=== PATIENT | male | born 1975 | race Caucasian/White ===

== ENCOUNTER 2023-11-27 01:41 | Inpatient (IN) | payer OTHER, SELFPAY ==
[2023-11-26 19:08] VITALS: BP 120/79
[2023-11-26 19:25] LABS: % Basophils 0.4 % (0-2); % Eosinophils 1.1 % (0-6); % Immature Granulocytes 0.4 % (0-0.5); % Lymphocytes 11.2 % (20.5-51.1); % Monocytes 6.3 % (1.7-9.3); % Neutrophils 80.6 % (42.2-75.2); Absolute Basophils 0.1 10^3/uL (0-0.2); Absolute Eosinophils 0.2 10^3/uL (0-0.7); Absolute Immature Granulocytes 0.1 10^3/uL (0-0.05); Absolute Lymphocytes 2.1 10^3/uL (1.2-3.4); Absolute Monocytes 1.2 10^3/uL (0.1-0.6); Absolute Neutrophils 15.1 10^3/uL (1.4-6.5); Hematocrit 37.5 % (39.0-52.0); Mean Corp Hgb Conc. 34.7 g/dL (33.0-37.0); Mean Corpuscular Volume 86.6 fL (80.0-94.0); Mean Platelet Volume 9.1 fL (7.4-10.4); Nucleated Red Blood Cells % 0 % (-); Platelet Count 530 10^3/uL (130-400); Red Blood Cell Count 4.33 10^6/uL (4.70-6.10); Red Cell Dist. Width 12.8 % (11.5-14.5); White Blood Cell Count 18.7 10^3/uL (4.8-10.8)
[2023-11-26 19:38] LABS: ALT (SGPT) 28 U/L (0-50); AST (SGOT) 29 U/L (17-59); Albumin 3.9 g/dl (3.5-5.0); Alkaline Phosphatase 111 U/L (38-126); Blood Urea Nitrogen 7 mg/dl (9-20); Calcium 9.6 mg/dl (8.4-10.2); Carbon Dioxide 26 mmol/L (22-30); Chloride 103 mmol/L (98-107); Glucose 109 mg/dl (70-99); Lipase 126 U/L (23-300); Potassium 3.8 mmol/L (3.5-5.1); Sodium 136 mmol/L (135-145); Total Bilirubin 0.4 mg/dl (0.2-1.3); Total Protein 7.1 g/dl (6.3-8.2); eGFR > 60.00
--- NOTE | 2023-11-26 20:37 | ED.GENMED ---
History of Present Illness
General
Chief Complaint: Abdominal Symptoms
Source: patient
Exam Limitations: none
Time Seen by Provider: 11/26/23 20:01
Travel History
Have you had any contact with someone who has COVID-19?: No
Do you have any symptoms of coronavirus? Fever > 100 degrees, chills, cough, shortness of breath, sore throat, loss of taste or smell, muscle aches, or headache?: No
History of Present Illness
History of Present Illness:
This is a 47 year old male that comes in with c/o fever and abd pain. State that the Monday before he started with a diverticulitis flare. State that he was put on two antibiotics and he has finished them. States that today he was out doing
yard work and came in and lay down. Patient's state that she went to kiss him on the head and felt that he was very hot. States that she took his Temp with an ear thermometer and he was 101.8. States that he has had chills, abd pain, headache
and slight Dizziness and slight urinary burning. . Denies any chest pain, SOB, nausea, vomiting, diarrhea.
Past History
Past History
ED Past Medical History: Other (Diverticulitis, )
ED Past Surgical History: Orthopedic (Right knee surgery)
Social History
Tobacco: Smoker
Alcohol: Daily (Beer 4-5)
Personal:
Living: with family
Review of Systems
Review of Systems
All Other Systems: ROS reviewed and negative except as documented in HPI and ROS
Constitutional: Reports fever and chills
EENT: Reports no symptoms
Respiratory: Reports no symptoms; Denies cough or trouble breathing
Cardiac: Reports no symptoms; Denies chest pain
ABD/GI: Reports abdominal pain; Denies nausea, vomiting or diarrhea
: Reports dysuria; Denies frequency or urgency
Musculoskeletal: Reports no symptoms
Skin: Reports no symptoms
Neurological: Reports dizzy (Slight) and headache
Psychiatric: Reports no symptoms
Phy Exam
General Physical Exam
General Presentation: no apparent distress
General age: appears stated age
General Skin: warm and dry
General Habitus: normal
General Mental: alert
General Hydration: appears well hydrated
ENT Exam
ENT Exam: TM's normal, pharynx normal and neck supple
Eye Exam
Eye Exam: EOMI
Cardiovascular Exam
Cardiovascular Exam: no edema, normal peripheral pulses and tachycardia
Pulmonary Exam
Pulmonary Exam: no respiratory distress, no rales, chest non tender, no crackles, no rhonchi, no cough and decreased breath sounds (with very faint exp wheezing noted upper lung dunn)
Gastrointestinal Exam
Gastrointestinal Exam: normal bowel sounds, soft, no organomegaly, no pulsatile mass, non distended and tender (LLQ tenderness with palpation)
Musculoskeletal Exam
Musculoskeletal Exam: full ROM and no edema
Skin Exam
Skin Exam: normal color, warm/dry, no rash and no petechia
Psychiatric Exam
Psychiatric Exam: normal mood/affect
Course
Orders/Labs/Results
Orders:
Orders
11/26/23 19:16
Complete Blood Count/With Diff Urgent
Comprehensive Metabolic Panel Urgent
Lipase Urgent
11/26/23 20:28
CT Abd/pel W Iv And Oral Contr Urgent
Comment:
Reason For Exam: Left lower abd pain
0.9% Sodium Chloride 1000 ml [Nss] 1,000 ml IV BOLUS
Acetaminophen 1000MG/100Ml [Ofirmev] 1,000 mg in 100 ml IV ONCE
Acetaminophen IV Indication:: ED Narcotic Naive Pt-ONCE
Iohexol [Omnipaque] See Protocol PO NOW STA
11/26/23 20:32
Ondansetron Injectable [Zofran] 4 mg .ROUTE .STK-MED ONE
11/26/23 20:37
Ondansetron Injectable [Zofran] 4 mg IV NOW STA
11/26/23 20:55
Lactic Acid Q4H
Comment: CANCEL 2nd LACTIC ACID IF 1st LACTIC ACID IS LESS THAN 2
Blood Culture Q30M
MARY Source: Blood/Venous
Specimen Description:
Blood Culture Q30M
MARY Source: Blood/Venous
Specimen Description:
11/26/23 23:13
Urinalysis Reflex To Culture Urgent
Date Specimen was Collected: 11/26/23
Time Specimen was Collected: 23:12
11/27/23 00:45
Lactic Acid Q4H
Comment: CANCEL 2nd LACTIC ACID IF 1st LACTIC ACID IS LESS THAN 2
Abnormal Lab Results
11/26/23
19:16
WBC 18.7 H 10^3/uL
(4.8-10.8)
RBC 4.33 L 10^6/uL
(4.70-6.10)
Hct 37.5 L %
(39.0-52.0)
Plt Count 530 H 10^3/uL
(130-400)
Abs Immat Gran (auto) 0.1 H 10^3/uL
(0-0.05)
Absolute Neuts (auto) 15.1 H 10^3/uL
(1.4-6.5)
Absolute Monos (auto) 1.2 H 10^3/uL
(0.1-0.6)
Neutrophils % 80.6 H %
(42.2-75.2)
Lymphocytes % 11.2 L %
(20.5-51.1)
BUN 7 L mg/dl
(9-20)
Creatinine 0.6 L mg/dL
(0.7-1.3)
Glucose 109 H mg/dl
(70-99)
11/26/23 19:16
11/26/23 19:16
Leukocytosis, Plt slightly elevated. Glucse nonfasting. Lipase normal at 126, Lactic acid normal at 0.7 Urine negative for infection.
Vital Signs
Initial and Last Documented VS:
Initial Vital Signs
Temp Pulse Resp BP Pulse Ox
100.4 F H 106 16 120/79 96
11/26/23 19:08 11/26/23 19:08 11/26/23 19:08 11/26/23 19:08 11/26/23 19:08
Last Documented Vital Signs
Temp Pulse Resp BP Pulse Ox
98.2 F 65 13 106/68 94
11/26/23 23:14 11/26/23 23:14 11/26/23 23:14 11/26/23 23:14 11/26/23 23:14
MDM/Problems Addressed
Differential Diagnosis Includes:
Diverticulitis with abscess, Perforated diverticulum
MDM/Problems Addressed:
This is a 47 year old male that comes in with c/o fever and abd pain. States that before he started with a diverticulitis flare. Patient was given Levaquin and Flagyl which he had finished. States that his pain is still there and today he
started with fever and chills.
Will get lab and CT scan. will give IV fluids and Tylenol .
Back into see patient and . Explained that he does have diverticulitis with an abscess. Will give IV antibiotics and admit. Hospitalist notified.
Chronic conditions affecting care: Other (Diverticulitis)
Acute Exacerbation and/or Progression of Chronic Illness: Other (Diverticulitis)
*Radiology
Radiology exam reviewed: radiology read reviewed (CT night hawk- Acute diverticulitis/colitis involving the rectosigmoid, with marked mural thickening and extenive inflammatory stranding. There is an associated 4.6 X 3.3 X 3.2cm abscess seen
involving the rectal wall, with the abscess anteriorly projecting towards the seminal vesicles. t) and all reviewed NAD by ED Provider (CT cont- IR consultation is recommended. Follow up colonoscopy is recommended after the patient's acute
inflmmation resolved in order to exclude underlying malignancy. Mural thickening of the bladder, suspicious for cystitis. Correlation with UA is recommended. NO free air. Vascular calcifcations. )
*Pulse Oximetry
Patient hypoxic: no
*EKG
Interpreted by ED Provider?: NA
Rate: EKG- N/A
*Benefits Director Interpretation
Rate: Benefits Director- N/A
*Critical Care Note
Total Time (30-74mins, 75-104mins- exclusive of procedures): Not Applicable
ED Attending Note
-
Portions of this chart may have been created with voice recognition software.� Occasional wrong word or��sound alike� substitutions may have occurred due to the inherent limitations of voice recognition software.
Discharge Plan
Departure
Patient Disposition: Admit
Date of Disposition: 11/27/23
Time of Disposition: 00:01
Admit to: Med/Surg
Presentation/result/management discussed w/ accepting MD/DO: Hospitalist
Patient with high blood pressure during this ER visit?: No
Condition: Good
Covid-19: Not Applicable
Discharge Problem:
Diverticulitis of intestine with abscess
Prescriptions:
No Action
No Meds
metronidazole 500 MG tablet
500 mg PO TID Qty: 30 0RF
ciprofloxacin HCl 500 MG tablet
500 mg PO BID Qty: 20 0RF
Referrals:
Avelino Zamorano MD [Family Provider] -
Interventions
Interventions:
*Risk Screen - Suicide Last Done: 11/26/23 19:08
*General Assessment Last Done: 11/26/23 19:08
*Neglect/Abuse Screening Last Done: 11/26/23 21:06
*ED COVID-19 Vaccine History Last Done: 11/26/23 19:08
NQ-Xcnxpd-Adoajrrcug Assessment Last Done: 11/26/23 21:06
Discharge Date and Time
Print Language: FINNISH
[2023-11-26] MEDS: OFIRMEV 100 IV (20:50)
[2023-11-26] MEDS: NSS 1000 IV (20:50)
[2023-11-26] MEDS: OMNIPAQUE 50 ML PO (20:51)
[2023-11-26] MEDS: ZOFRAN 4 MG IV (20:51)
[2023-11-26 20:59] VITALS: BP 102/71; BMI 20.1
[2023-11-26 21:19] LABS: Lactic Acid 0.7 mmol/L (0.7-2.0)
[2023-11-26 23:14] VITALS: BP 106/68
[2023-11-26 23:22] LABS: Urine Albumin Negative (Neg - Trace); Urine Bilirubin Negative (Negative); Urine Character Clear (Clear); Urine Color Yellow; Urine Glucose Negative (Negative); Urine Ketone Negative (Negative); Urine Leukocyte Negative (Negative); Urine Nitrite Negative (Negative); Urine Occult Blood Negative (Negative); Urine Urobilinogen Negative (Neg - 1+)
[2023-11-27] VITALS (11 sets, daily range): BP systolic 67–119; BP diastolic 54–71; BMI 19.7
[2023-11-27] MEDS: ZOSYN 50 IV ×5 (00:30→23:53)
--- NOTE | 2023-11-27 01:29 | HPS.HSE ---
Family Physician
-
Family Physician: Avelino Zamorano
Chief Complaint
-
fever and abdominal pain
History of Present Illness
47M current smoker HX diverticulosis/ diverticulitis , daily ETOH use seen at ER for evaluation of fever and abd pain.
Fever and abdominal pain;
noted he is feverish , Temp was 101.8 with chills
Associated with abdominal pain
Recent acute diverticulitis Dxed on 11/09 s/p course of ciprofloxacin and metronidazole - last dose was 11/21/23
After the ABx course, pain is slightly improved but not completely pain free
last BM was yesterday - liquid to like small baby feces
Drink Beer 4-5 cans a day
No proir HC ETOH WDS
ROS
Denies any chest pain, SOB, nausea, vomiting, diarrhea.
Medical History
Past Medical History
Past Medical History: Reports Other ((Diverticulitis, ))
Past Surgical History: Reports None
Social History
Tobacco: Smoker
Alcohol: Daily
Drug: None
Personal:
Living: With Family
Family History
Family History: Not pertinent
Allergies / Home Medications
Allergies reflects when Allergies were last updated in [employer].
Home Medications with original date entered in [employer]
Allergy/Medication List:
Allergies
Allergy/AdvReac Type Severity Reaction Status Date / Time
No Known Allergies Allergy Unverified 06/18/12 09:37
Home Medications
No Meds 06/18/12
ciprofloxacin HCl 500 mg tablet 500 mg PO BID #20 tabs 06/18/12
metronidazole 500 mg tablet 500 mg PO TID #30 tabs 06/18/12
Review of Systems
-
Constitutional: Reports Fever and Chills
EENT: Reports No Symptoms
Respiratory: Reports No Symptoms
Cardiac: Reports No Symptoms
Abdomen/GI: Reports See HPI, Abdominal Pain and Nausea
: Reports No Symptoms
Musculoskeletal: Reports No Symptoms
Skin: Reports No Symptoms
Neurological: Reports No Symptoms
Endocrine: Reports No Symptoms
Hematologic/Lymphatic: Reports No Symptoms
Psych: Reports No Symptoms
Physical Exam
Vital Signs
Vital Signs
Temp Pulse Resp BP Pulse Ox
98.2 F 58 12 97/69 94
11/26/23 23:14 11/27/23 00:32 11/27/23 00:32 11/27/23 00:32 11/27/23 00:32
Physical Exam
General: No Apparent Distress, Comfortable, Conversant and Other (not toxic )
HEENT: NormoCephalic, Anicteric, Moist mucous membranes and Atraumatic
Respiratory: Clear; No Wheezes, Rales or Rhonchi
Cardiac: S1/S2, Regular Rhythm and Irregular Rhythm
Breast: Deferred by me
GI: Soft, Non Distended and Tender (at LLQ )
Musculoskeletal: No Edema
Neuro: AO x 3 and Nonfocal/grossly intact
Psych: Calm
Laboratory Results
-
11/26/23 19:16
11/26/23 19:16
Laboratory Results
Lactic Acid 0.7 mmol/L (0.7-2.0) 11/26/23 20:55
Total Bilirubin 0.4 mg/dl (0.2-1.3) 11/26/23 19:16
AST 29 U/L (17-59) 11/26/23 19:16
ALT 28 U/L (0-50) 11/26/23 19:16
Alkaline Phosphatase 111 U/L (38-126) 11/26/23 19:16
Lipase 126 U/L (23-300) 11/26/23 19:16
Data Reviewed
-
CT Scan: Report Reviewed by me
Lab Data: Labs Reviewed by me
Old Records: Reviewed
Impression/Plan
-
Reviewed VS: T 100.4 BP 95/90 HR 60
Data
WCC 18.7
Plt 530
nl CMP
LA 0.[address] AP w IV/PO contrast per night hawk
- Acute diverticulitis/colitis involving the rectosigmoid, with marked mural thickening and extenive inflammatory stranding.
- There is an associated 4.6 X 3.3 X 3.2cm abscess seen involving the rectal wall, with the abscess anteriorly projecting towards the seminal vesicles.
- IR consultation is recommended.
- Follow up colonoscopy is recommended after the patient's acute inflmmation resolved in order to exclude underlying malignancy. Mural thickening of the bladder, suspicious for cystitis. Correlation with UA is recommended. NO free air. Vascular
calcifcations.
No prior hospitalist admission:
ASSESSMENT & PLAN
Acute perforated diverticulitis with 4.6 X 3.3 X 3.2cm abscess seen involving the rectal wall and abscess anteriorly projecting towards the seminal vesicles.
Associated reactive thrombocytosis and leucocytosis
Recent acute diverticulitis Dxed on 11/09 s/p course of ciprofloxacin and metronidazole - last dose was 11/21/23
After the ABx course, pain is slightly improved but NOT completely pain free
last BM was yesterday - liquid to like small baby feces
- NPO and IVF
- Empiric Zosyn
- Narcotic Analgesia PRN
- Antiemetics PRN
- Trend CBC
- CRS and IR consult
Daily ETOH use disorder
- MSAS protocol
DVT Px: SCD
Full code
IP MS
[2023-11-27] MEDS: DILAUDID 0.5 MG IV ×3 (02:26→18:16)
[2023-11-27] MEDS: NSS 1000 IV ×3 (03:20→23:53)
--- NOTE | 2023-11-27 04:21 | PTCARENOTE ---
Patient received from ED via stretcher and ambulated to bed. He was oriented to room and surroundings. HRR, Breath sounds are decreased with scattered exp wheezes. Sat 96% on room air. Abdomen tender and round. Voided x 1 in bathroom.
IVF and IV abx as ordered. MSAS 0.
[2023-11-27 06:41] LABS: Hematocrit 36.3 % (39.0-52.0); Hemoglobin 12.2 g/dL (13.0-18.0); Mean Corp Hgb Conc. 33.6 g/dL (33.0-37.0); Mean Corpuscular Hgb 29.9 pg (27.0-31.0); Mean Platelet Volume 9.8 fL (7.4-10.4); Platelet Count 525 10^3/uL (130-400); Red Blood Cell Count 4.08 10^6/uL (4.70-6.10); Red Cell Dist. Width 12.9 % (11.5-14.5); White Blood Cell Count 18.5 10^3/uL (4.8-10.8)
[2023-11-27 07:01] LABS: Blood Urea Nitrogen 8 mg/dl (9-20); Calcium 8.8 mg/dl (8.4-10.2); Carbon Dioxide 26 mmol/L (22-30); Chloride 104 mmol/L (98-107); Estimated Creatinine Clearance > 125 ml/min; Glucose 79 mg/dl (70-99); Potassium 4.3 mmol/L (3.5-5.1); Sodium 135 mmol/L (135-145); eGFR > 60.00
--- NOTE | 2023-11-27 09:45 | WOUNDNOTE ---
WOC RN note: confirmed with FLORA Mac that stoma marking can be done in the am.
[2023-11-27 10:32] LABS: INR 1.21; PT 15.1 Sec (11.4-14.6)
--- NOTE | 2023-11-27 10:56 | CON.CRS ---
Consultation
-
Date/Time Consultation Requested: 11/27/2023, 02:41
Date/Time Consultation Performed: 11/27/2023, 08:30
Requesting Provider: Martha Morton CRNP
Performing Provider: Jarrett Hope MD
Reason for Consultation: diverticulitis
Medical History
-
Chief Complaint: abdominal pain
History of Present Illness:
47-year-old male with a past medical history of diverticulitis in 2011 presents to [facility] emergency department on 11/26/2023 complaining of abdominal pain and fevers for a little over 2 weeks. The patient states his temp was 101.8 with
chills. He saw his primary care physician on 11/10/2023 and was prescribed a course of ciprofloxacin and metronidazole and he completed his course on 11/21/2023. He stated that the antibiotics helped but he still was not completely pain-free. His
last bowel movement was yesterday and was liquid in nature. Usually he has regular bowel movements daily. He states he has been having trouble peeing over the past few days. He denies any air in his urine. He feels bloated and distended. He
denies nausea or vomiting. He is hungry. He has had been having chills over the past few nights. He is still having flatus. He denies prior colorectal surgery. His last colonoscopy was in May [address] Jiang and he had 5 polyps removed
and hemorrhoids were noted.
In the ER his white count was 18.7. CT of the abdomen and pelvis shows pronounced bowel wall thickening and inflammatory changes adjacent to the rectum and sigmoid colon, likely reflective of severe diverticulitis. Suspected abscess located
between the rectum and seminal vesicles, measuring 4.6 x 3.3 x 3.2 cm. We have been consulted for further surgical evaluation.
Past Medical History
Past Medical History: Other (diverticulitis in 2011)
Past Surgical History: None
Social History
Tobacco: Smoker
Alcohol: None
Drug: None
Family History
Family History: Reviewed & Not Pertinent
Allergies / Home Medications
Allergy/AdvReac Type Severity Reaction Status Date / Time
No Known Allergies Allergy Unverified 06/18/12 09:37
�Medication �Instructions �Recorded �Confirmed �Type
No Meds 06/18/12 06/18/12 History
ciprofloxacin HCl 500 mg tablet 500 mg PO BID #20 tabs 06/18/12 Rx
metronidazole 500 mg tablet 500 mg PO TID #30 tabs 06/18/12 Rx
Review of Systems
-
History Source: Patient
Constitutional: Fever and Chills
Abdomen/GI: Abdominal Pain
: Other (trouble urinating)
A 10 point review of systems was completed, and was negative except as per HPI.
Physical Exam
Vital Signs
Temp 99.8 F 11/27/23 07:20
Pulse 78 11/27/23 07:20
Resp Rate 17 11/27/23 07:20
Blood pressure 95/56 11/27/23 07:20
SaO2 91 11/27/23 07:20
11/26/23 11/27/23 11/28/23
06:59 06:59 06:59
Actual Weight 77.201 kg
Body Mass Index (BMI) 19.7
Lab Results / Allergies
11/27/23 05:33
11/27/23 05:33
WBC 18.5 10^3/uL (4.8-10.8) H 11/27/23 05:33
Hgb 12.2 g/dL (13.0-18.0) L 11/27/23 05:33
Hct 36.3 % (39.0-52.0) L 11/27/23 05:33
Plt Count 525 10^3/uL (130-400) H 11/27/23 05:33
Abs Immat Gran (auto) 0.1 10^3/uL (0-0.05) H 11/26/23 19:16
Neutrophils % 80.6 % (42.2-75.2) H 11/26/23 19:16
Allergy/AdvReac Type Severity Reaction Status Date / Time
No Known Allergies Allergy Unverified 06/18/12 09:37
Physical Exam
General: Well Developed, Well Nourished and No Apparent Distress
GI: Soft, Tender (lower quadrants , guarding) and Distended (mild to moderate)
Skin: Warm and Dry
Neuro: AO x 3
Psych: Calm
Data Reviewed
-
CT Scan: Image Personally Visualized and interpreted, Report Reviewed by me and Discussed with Patient
Labs: Labs Reviewed by me, Discussed with Physician and Discussed with Patient
Old Records: Reviewed
Assessment / Plan
-
Assessment: 47-year-old male with past medical history of diverticulitis in 2011, presents to the emergency department for 2 weeks of abdominal pain, fevers and chills, and difficulty urinating found to have severe rectum and sigmoid diverticulitis
with a suspected abscess located between the rectum and seminal vesicles
Plan:
1. Remain n.p.o. for now.
2. IV fluids while NPO.
3. I have consulted interventional radiology for drainage of the abscess.
4. Continue IV antibiotics.
5. I have asked the wound RN to tomás him for an ostomy in case he were to worsen.
6. No surgery at this time however if he were to worsen, he will require a colectomy with colostomy creation. Discussed with the patient.
--- NOTE | 2023-11-27 12:53 | W.PN.HOSP.TC ---
Today's Communication/Plan
-
.
Assessment / Plan
Assessment / Plan
Physical Exam
General: No Apparent Distress, Comfortable, Conversant and Other (not toxic )
HEENT: Normocephalic, Anicteric, Moist mucous membranes and Atraumatic
Respiratory: some expiratory Rhonchi
Cardiac: S1/S2, Regular Rhythm and Irregular Rhythm
GI: Soft, mildly Distended and Tender (at LLQ )
Musculoskeletal: No Edema
Neuro: AO x 3 and Nonfocal/grossly intact
Psych: Calm
#Sepsis POA due to Acute diverticulitis/colitis involving the rectosigmoid, with marked mural thickening and extensive inflammatory stranding.
- There is an associated 4.6 X 3.3 X 3.2cm abscess seen involving the rectal wall, with the abscess anteriorly projecting towards the seminal vesicles.
- IR consultation is recommended.
- Follow up colonoscopy is recommended after the patient's acute inflmmation resolved in order to exclude underlying malignancy. Mural thickening of the bladder, suspicious for cystitis. Correlation with UA is recommended. NO free air. Vascular
calcifications.
Associated reactive thrombocytosis and leucocytosis
Recent acute diverticulitis Dxed on 11/09 s/p course of ciprofloxacin and metronidazole - last dose was 11/21/23
c/w IV Abx, NPO , pain control
- IVF
- Narcotic Analgesia PRN
- Antiemetics PRN
- Trend CBC
Appreciate IR and surgery input
#Tobacco use, smoke 1 PPD
Nicotine patch if he agrees
# Acute urinary retention
will do bladder scan and Camarena if not voiding
#Daily ETOH use disorder
- MSAS protocol
�Total time spent to see patient, examine the patient on the floor, review data and lab results, discuss treatment plan with patient, nursing staff around 55 minutes
Anticipated Discharge: > 48 hours
Subjective/Interval History
-
Date of Service: November 27, 2023
Seen earlier
Less abd pain
Having difficulty passing urine earlier
Objective Data
-
Labs:
Laboratory Results
11/27/23 11/27/23
05:33 10:09
WBC 18.5 H
Hgb 12.2 L
Hct 36.3 L
Plt Count 525 H
PT 15.1 H
INR 1.21
Sodium 135
Potassium 4.3
Chloride 104
Carbon Dioxide 26
BUN 8 L
Creatinine 0.6 L
Glucose 79
Calcium 8.8
Vital Signs:
Vital Signs
Temp Pulse Resp BP Pulse Ox
98.6 F 76 18 98/59 97
11/27/23 11:41 11/27/23 11:41 11/27/23 11:41 11/27/23 11:41 11/27/23 11:41
I&O
11/26/23 11/27/23 11/28/23
06:59 06:59 06:59
Intake Total 350 / 350
Balance 350 / 350
[2023-11-27] MEDS: NICODERM TRANSDERMAL 21 MG TRANSDERM (13:21)
--- NOTE | 2023-11-27 14:46 | W.PN.UPDATE ---
Update Note
Progress Note Update
CT guided abscess drain placed, yielding 10 cc of pus. Sent for C+S.
--- NOTE | 2023-11-27 16:56 | CM ---
Alert awake oriented patient who lives with his Caitie who lives in a 3 story home with 1 step to enter and 14 steps to bed and bathroom. He is independent in driving and in all activities of daily living.No adaptive devices.He was offered VN
he declined need.IR drain placed today.
No VN hx / No SNF history
Pharmacy [facility]
PCP DR Avelino Zamorano
PLAN Home Declined VN
--- NOTE | 2023-11-27 19:43 | PTCARENOTE ---
Received patient from IR via stretcher around 1545 in stable condition. Patient has a right upper buttock ISAIAS drain in place draining purulent sanguinous drainage. Patient also has not voided since this morning at 0915. Bladder scan at 1730 was 513.
Patient was very resistant to a catheter and asked for more time. Patient still had not voided by 1830. Straight cathed for 550 ml dark yellow urine at 1900.
[2023-11-27] MEDS: TYLENOL 650 MG PO (21:19)
[2023-11-27] MEDS: NSS IV (21:21)
[2023-11-28 03:55] VITALS: BP 104/65
[2023-11-28] MEDS: ZOSYN 50 IV ×3 (05:12→17:06)
[2023-11-28 07:00] VITALS: BP 106/60
--- NOTE | 2023-11-28 08:00 | W.PN.HOSP.TC ---
Today's Communication/Plan
-
.
Assessment / Plan
Assessment / Plan
Physical Exam
General: No Apparent Distress, Comfortable, Conversant and Other (not toxic )
HEENT: Normocephalic, Anicteric, Moist mucous membranes and Atraumatic
Respiratory: no expiratory Rhonchi
Cardiac: S1/S2, Regular Rhythm and Irregular Rhythm
GI: Soft, mildly Distended and less Tender (at LLQ ), drain Right lower back
Musculoskeletal: No Edema
Neuro: AO x 3 and Nonfocal/grossly intact
Psych: Calm
#Sepsis POA due to Acute diverticulitis/colitis involving the rectosigmoid, with marked mural thickening and extensive inflammatory stranding.
- There is an associated 4.6 X 3.3 X 3.2cm abscess seen involving the rectal wall, with the abscess anteriorly projecting towards the seminal vesicles.
- s/p drain by IR on 11/26
He is doing better, no significant pain or tenderness
Recent acute diverticulitis Dxed on 11/09 s/p course of ciprofloxacin and metronidazole - last dose was 11/21/23
c/w IV Abx, NPO , pain control
- IVF, can try liquid diet
- Narcotic Analgesia PRN
- Antiemetics PRN
- Blood work in AM
Appreciate IR and surgery input
#Tobacco use, smoke 1 PPD
Nicotine patch
No wheezes heard today
No hypoxia
# Acute urinary retention
will do bladder scan and Camarena if not voiding
#Daily ETOH use disorder
No signs of DT, he is lucid, calm and pleasant
- MSAS protocol
�Total time spent to see patient, examine the patient on the floor, review data and lab results, discuss treatment plan with patient, nursing staff around 55 minutes
Anticipated Discharge: > 48 hours
Subjective/Interval History
-
Date of Service: November 28, 2023
Doing better
passing gas
No chest pain
Objective Data
-
Vital Signs:
Vital Signs
Temp Pulse Resp BP Pulse Ox
98.0 F 71 18 106/60 95
11/28/23 07:00 11/28/23 07:00 11/28/23 07:00 11/28/23 07:00 11/28/23 07:00
I&O
11/27/23 11/28/23 11/29/23
06:59 06:59 06:59
Intake Total 350 / 350 2960 / 2960
Output Total 590 / 590
Balance 350 / 350 2370 / 2370
[2023-11-28] MEDS: NICODERM TRANSDERMAL 21 MG TRANSDERM (08:44)
[2023-11-28] MEDS: NSS 1000 IV ×2 (09:12→17:06)
[2023-11-28 09:18] LABS: % Basophils 0.3 % (0-2); % Eosinophils 0.5 % (0-6); % Immature Granulocytes 0.6 % (0-0.5); % Lymphocytes 6.9 % (20.5-51.1); % Neutrophils 84.7 % (42.2-75.2); Absolute Basophils 0.1 10^3/uL (0-0.2); Absolute Eosinophils 0.1 10^3/uL (0-0.7); Absolute Immature Granulocytes 0.1 10^3/uL (0-0.05); Absolute Lymphocytes 1.3 10^3/uL (1.2-3.4); Absolute Monocytes 1.3 10^3/uL (0.1-0.6); Hematocrit 35.7 % (39.0-52.0); Hemoglobin 11.9 g/dL (13.0-18.0); Mean Corp Hgb Conc. 33.3 g/dL (33.0-37.0); Mean Corpuscular Volume 89.9 fL (80.0-94.0); Mean Platelet Volume 9.9 fL (7.4-10.4); Nucleated Red Blood Cells % 0 % (-); Platelet Count 477 10^3/uL (130-400); Red Blood Cell Count 3.97 10^6/uL (4.70-6.10); Red Cell Dist. Width 12.8 % (11.5-14.5); White Blood Cell Count 18.9 10^3/uL (4.8-10.8)
--- NOTE | 2023-11-28 09:49 | W.PN.CRS1 ---
Today's Communication / Plan
-
clears to fulls
continue abx
drain in place
monitor wbc
Assessment/Plan
-
Assessment: 47-year-old male with past medical history of diverticulitis in 2011, presents to the emergency department for 2 weeks of abdominal pain, fevers and chills, and difficulty urinating found to have severe rectum and sigmoid diverticulitis
with a suspected abscess located between the rectum and seminal vesicles
Plan:
1. Trend vitals (normal) and WBC, 18.9 from 18.5.
1. Advance diet to clears, fulls for diner if tolerating.
2. Continue IVFs.
3. IR drain in place into abscess, cultures are pending.
4. Continue IV antibiotics.
5. I have asked the wound RN to tomás him for an ostomy in case he were to worsen. They will do this today.
6. No surgery at this time however if he were to worsen, he will require a colectomy with colostomy creation. Discussed with the patient.
Subjective Data
Procedure
11/27/2023- IR drain placement into diverticular abscess
Subjective Data
Date of Service: November 28, 2023
Patient states he is less tender today. He only has pain around the drain site. He has no nausea or vomiting. He is hungry. He has flatus.
Objective Data
-
Vital Signs
Temp Pulse Resp BP Pulse Ox
98.0 F 71 18 106/60 95
11/28/23 07:00 11/28/23 07:00 11/28/23 07:00 11/28/23 07:00 11/28/23 07:00
Intake & Output
11/27/23 11/28/23 11/29/23
06:59 06:59 06:59
Intake Total 350 / 350 2960 / 2960
Output Total 590 / 590
Balance 350 / 350 2370 / 2370
Intake:
IV fluids (Total) 300 / 300 2900 / 2900
NSS 100 / 100
IV piggybacks 50 / 50 50 / 50
Amount instilled into Drain (
Total)
Right Lower Back Placed in IR
Output:
Drain Output (Total) 40 / 40
Right Lower Back Placed in IR
Straight cath output 550 / 550
Other:
Number of approximated SMALL 1
amounts of urine
Number of approximated MODERATE 1 1
amounts of urine
Number of approximated LARGE 1
amounts of urine
Lab Results
11/28/23 08:24
11/27/23 05:33
Physical Exam
-
General: No Acute Distress and AOx3
Abdomen: Soft, Non Distended, Tender (around ISAAIS drain site) and Other (ISAIAS drain - serosanginous mixed with some mucus)
Skin: Warm and Dry
--- NOTE | 2023-11-28 10:22 | WOUNDNOTE ---
FREDERIC RN NOTE: Stoma sited patient as requested. Identified rectus muscle, avoided creases and scars. Assessed lying, sitting and standing. LUQ marked 6cm from midline and 5cm proximal from umbilical line. LLQ marked 6 cm from midline and 2cm distal
from umbilical line. RUQ marked 6cm from midline and 4.5cm proximal from umbilical line, RLQ marked 6cm from midline and 2cm distal from umbilical line. Answered all questions and will follow for ostomy teaching if needed. Patient aware that surgeon
has final decision regarding location of stoma.
[2023-11-28 11:00] VITALS: BP 112/56
[2023-11-28 15:00] VITALS: BP 111/69
[2023-11-28] MEDS: TYLENOL 650 MG PO (18:39)
[2023-11-28] MEDS: HEPARIN 5000 UNITS SC (20:20)
[2023-11-28 23:15] VITALS: BP 102/61
[2023-11-29] MEDS: ZOSYN 50 IV ×5 (00:33→23:56)
[2023-11-29] MEDS: NSS 1000 IV ×4 (00:34→23:57)
--- NOTE | 2023-11-29 04:45 | DOWNTIME ---
There was a [employer] Client Physical Integration Practitioner Downtime on 11/29/2023 from 0100 to 11/29/2023 at 0439. Downtime documentation of patient's care, including medication administrations, has been reconciled in the electronic record per guidelines. Refer to the
patient's paper chart under the miscellaneous tab to see printed paper medication records and downtime forms.
[2023-11-29 05:00] LABS: Hematocrit 33.8 % (39.0-52.0); Hemoglobin 11.6 g/dL (13.0-18.0); Mean Corp Hgb Conc. 34.3 g/dL (33.0-37.0); Mean Corpuscular Volume 87.3 fL (80.0-94.0); Mean Platelet Volume 9.3 fL (7.4-10.4); Platelet Count 436 10^3/uL (130-400); Red Blood Cell Count 3.87 10^6/uL (4.70-6.10); Red Cell Dist. Width 12.9 % (11.5-14.5); White Blood Cell Count 12.1 10^3/uL (4.8-10.8)
[2023-11-29 05:35] LABS: Blood Urea Nitrogen 5 mg/dl (9-20); Carbon Dioxide 27 mmol/L (22-30); Chloride 103 mmol/L (98-107); Estimated Creatinine Clearance > 125 ml/min; Glucose 97 mg/dl (70-99); Potassium 4.1 mmol/L (3.5-5.1); Sodium 136 mmol/L (135-145); eGFR > 60.00
--- NOTE | 2023-11-29 06:26 | W.PN.HOSP.TC ---
Today's Communication/Plan
-
.
Assessment / Plan
Assessment / Plan
Physical Exam
General: No Apparent Distress, Comfortable, Conversant and Other (not toxic )
HEENT: Normocephalic, Anicteric, Moist mucous membranes and Atraumatic
Respiratory: no expiratory Rhonchi
Cardiac: S1/S2, Regular Rhythm and Irregular Rhythm
GI: Soft, mildly Distended and less Tender (at LLQ ), drain Right lower back
Musculoskeletal: No Edema
Neuro: AO x 3 and Nonfocal/grossly intact
Psych: Calm
#Sepsis POA due to Acute diverticulitis/colitis involving the rectosigmoid, with marked mural thickening and extensive inflammatory stranding.
- There is an associated 4.6 X 3.3 X 3.2cm abscess seen involving the rectal wall, with the abscess anteriorly projecting towards the seminal vesicles.
- s/p drain by IR on 11/26
He is doing better, no significant pain or tenderness
Recent acute diverticulitis Dxed on 11/09 s/p course of ciprofloxacin and metronidazole - last dose was 11/21/23
s/p IV Abx, tolerating Low residue diet well
- Narcotic Analgesia PRN
- Antiemetics PRN
- Blood work in AM
Appreciate IR and surgery input
#Tobacco use, smoke 1 PPD
Nicotine patch
No wheezes heard today
No hypoxia
# Acute urinary retention
nO retention now
#Daily ETOH use disorder
No signs of DT, he is lucid, calm and pleasant
- MSAS protocol
�Total time spent to see patient, examine the patient on the floor, review data and lab results, discuss treatment plan with patient, family ( mother), nursing staff around 59 minutes
Anticipated Discharge: 24 - 48 hours
Subjective/Interval History
-
Date of Service: November 29, 2023
Doing well
Objective Data
-
Labs:
Laboratory Results
11/29/23
04:49
WBC 12.1 H
Hgb 11.6 L
Hct 33.8 L
Plt Count 436 H
Sodium 136
Potassium 4.1
Chloride 103
Carbon Dioxide 27
BUN 5 L
Creatinine 0.7
Glucose 97
Calcium 9.0
Vital Signs:
Vital Signs
Temp Pulse Resp BP Pulse Ox
97.9 F 62 20 102/61 95
11/28/23 23:15 11/28/23 23:15 11/28/23 23:15 11/28/23 23:15 11/28/23 23:15
I&O
11/27/23 11/28/23 11/29/23
06:59 06:59 06:59
Intake Total 350 / 350 2960 / 2960 4790 / 4790
Output Total 590 / 590
Balance 350 / 350 2370 / 2370 4702 / 4765
[2023-11-29 07:13] VITALS: BP 114/72
[2023-11-29] MEDS: NICODERM TRANSDERMAL 21 MG TRANSDERM (08:12)
--- NOTE | 2023-11-29 08:32 | W.PN.CRS1 ---
Today's Communication / Plan
-
low residue diet
no plans for surgery
Assessment/Plan
-
Assessment: 47-year-old male with past medical history of diverticulitis in 2011, presents to the emergency department for 2 weeks of abdominal pain, fevers and chills, and difficulty urinating found to have severe rectum and sigmoid diverticulitis
with a suspected abscess located between the rectum and seminal vesicles
Plan:
1. Trend vitals (normal) and WBC, 12.1 from 18.9.
2. Tolerating fulls, advance diet to low residue.
3. IR drain in place into abscess, cultures are pending.
4. Continue IV antibiotics.
5. No surgery at this time however if he were to worsen, he will require a colectomy with colostomy creation.
6. Lovenox for DVT prophylaxis.
7. Anticipate d/c tomorrow if doing well. Discussed with patient and hospitalist.
Subjective Data
Procedure
11/27/2023- IR drain placement into diverticular abscess
Subjective Data
Date of Service: November 29, 2023
Patient states he feels 'good'. He is less distended and less tender. He is having loose bowel movements.
Objective Data
-
Vital Signs
Temp Pulse Resp BP Pulse Ox
98.2 F 59 19 114/72 94
11/29/23 07:13 11/29/23 07:13 11/29/23 07:13 11/29/23 07:13 11/29/23 07:13
Intake & Output
11/28/23 11/29/23 11/30/23
06:59 06:59 06:59
Intake Total 2960 / 2960 4790 / 4790
Output Total 590 / 590 25 / 25
Balance 2370 / 2370 4765 / 4765
Intake:
Oral fluids 1180 / 1180
IV fluids (Total) 2900 / 2900 3450 / 3450
NSS 100 / 100
IV piggybacks 50 / 50 150 / 150
Amount instilled into Drain (
Total)
Right Lower Back Placed in IR
Output:
Drain Output (Total) 40 25
Right Lower Back Placed in IR
Straight cath output 550 / 550
Other:
Number of approximated SMALL 1
amounts of urine
Number of approximated MODERATE 1 4
amounts of urine
Number of approximated LARGE 1
amounts of urine
Lab Results
11/29/23 04:49
11/29/23 04:49
Physical Exam
-
General: No Acute Distress and AOx3
Abdomen: Soft, Non Distended and Tender (mild)
Skin: Warm and Dry
--- NOTE | 2023-11-29 10:13 | CM ---
Patient seen bedside. CM offered VN to patient for drain care, patient declining at this time, reports his works from home. CM will continue to follow for discharge planning needs.
Plan; home with , declining VN.
[2023-11-29 15:33] VITALS: BP 108/55
[2023-11-29] MEDS: LOVENOX 40 MG SC (17:23)
[2023-11-29 23:05] VITALS: BP 128/72
[2023-11-30] MEDS: TYLENOL 650 MG PO (02:57)
[2023-11-30] MEDS: ZOSYN 50 IV ×2 (05:27→12:00)
[2023-11-30 07:07] VITALS: BP 124/62
--- NOTE | 2023-11-30 08:30 | W.PN.CRS1 ---
Today's Communication / Plan
-
Okay for DC with drain
Follow-up with Dr. Hope in 2 weeks
Assessment/Plan
-
47-year-old male with PMH of prior episode of diverticulitis in 2011 who presents with 2 weeks of abdominal pain, s/p outpatient Cipro/Flagyl, WBC 18.7, CT showing diverticulitis with 4.6 x 3.3 cm upper pelvic abscess
S/p IR guided transgluteal drain with 10 cc purulent drainage
Last 24hrs: ISAIAS�24mL ml murky serous
� Cont low residue
� Pain control with Tylenol and IV Dilaudid as needed
� Continue IV Zosyn, recommend 7 day total of abx
� Cont DVT PPx with Lovenox
� OOB/IS
� Continue drain to bulb suction; will need VNA
� Appreciate hospitalist
�Okay for DC from surgical standpoint; follow-up with Dr. Hope in 2 weeks
Subjective Data
Procedure
11/27/2023- IR drain placement into diverticular abscess
Subjective Data
Date of Service: November 30, 2023
No overnight events.
Pain controlled.
Denies nausea/vomiting. Tolerating diet.
+flatus +BMs +voiding
Pt is OOB.
Objective Data
-
Vital Signs
Temp Pulse Resp BP Pulse Ox
97.7 F 48 17 124/62 94
11/30/23 07:07 11/30/23 07:07 11/30/23 07:07 11/30/23 07:07 11/30/23 07:07
Intake & Output
11/29/23 11/30/23 12/01/23
06:59 06:59 06:59
Intake Total 4790 / 4790 5250 / 5250
Output Total
Balance 4765 / 4765 5226 / 5226
Intake:
Oral fluids 1180 / 1180 1440 / 1440
IV fluids (Total) 3450 / 3450 3600 / 3600
IV piggybacks 150 / 150 200 / 200
Amount instilled into Drain (
Total)
Right Lower Back Placed in IR
Output:
Drain Output (Total)
Right Lower Back Placed in IR
Other:
Number of approximated MODERATE 4 2
amounts of urine
Lab Results
11/29/23 04:49
11/29/23 04:49
Physical Exam
-
General: No Acute Distress and AOx3
HEENT: Grossly Normal
Abdomen: Soft, Non Distended, Tender (Appropriately tender near transgluteal drain; abdomen nontender), No Guarding and No Rebound
Skin: Warm and Dry
[2023-11-30] MEDS: NICODERM TRANSDERMAL 21 MG TRANSDERM (08:48)
[2023-11-30] MEDS: NSS 1000 IV (08:53)
--- NOTE | 2023-11-30 14:09 | W.DCSUMMARY ---
Discharge Summary
Discharge Data
Date of Admission: 11/27/23
Date of Discharge: 11/30/23
-
Pending Results: No
Hospital Course
47 years old male presented with abdominal pain. Scan of the abdomen and pelvis showed acute diverticulitis involving the rectosigmoid with marked mural thickening and extensive inflammatory stranding, 4.6 x 3.3 x 3.2 cm abscesses involving the
rectal wall. Patient was evaluated by colorectal surgery. He had placement of a drain by interventional radiologist. Wound culture was sent to microbiology. Recent acute diverticulitis 11/09 s/p course of ciprofloxacin and metronidazole - last
dose was 11/21/23. He was given empiric intravenous antibiotics. He was a placed on bowel rest with nothing by mouth and intravenous fluid. His condition started to improve with resolution of pain and abdominal distention. He was started on liquid
diet and then progressed to low residue diet. He tolerated diet well. He had normal bowel movement. Patient had history of alcohol intake but did not have delirium or confusion. He had history of tobacco use, he was given nicotine patch. He did
not have hypoxia or coughing. Patient was counseled to quit smoking. Wound culture showed normal skin hannah which was likely due to previous intake of antibiotic. Patient was discharged on course of oral antibiotic. He was counseled with his
regarding potential side effects of antibiotic including ciprofloxacin induced tendinitis and gastrointestinal problems. Patient verbalized understanding. Patient remained hemodynamically stable. He was discharged home to follow-up with
surgery in the outpatient setting. He was discharged in a stable condition.
Physical Exam
General: No Apparent Distress, Comfortable, Conversant.
HEENT: Normocephalic, Anicteric, Moist mucous membranes and Atraumatic
Respiratory: no expiratory Rhonchi
Cardiac: S1/S2, Regular Rhythm and Irregular Rhythm
GI: Soft, not Distended, very mild Tender (at LLQ ), drain Right lower back
Musculoskeletal: No Edema
Neuro: AO x 3 and Nonfocal/grossly intact
Psych: Calm, pleasant.
Total discharge time spent to see patient, examine the patient on the floor, review data and lab results, discuss discharge plan with patient, , nursing staff around 65 minutes
Discharge Plan
-
Patient Disposition: Home with Home Care
Discharge Diagnosis/Procedures: Acute diverticulitis with 4.6 x 3.3 cm upper pelvic abscess , status post drain. You are seen by colorectal surgery. You received IV antibiotics.
Potential side effects of Augmentin include gastrointestinal upset, diarrhea, nausea.
Tensional side effects of ciprofloxacin, gastrointestinal upset, diarrhea, tendinitis(stop ciprofloxacin if you develop joint pain.)
Diet: Low Residue
Activity: No strenuous activity
Driving Restrictions: No driving
Instructions: Low Fiber Diet
Referrals:
Avelino Zamorano MD [Family Provider] - in one to two weeks
Sudeep Hope MD [Active] - in two weeks
Prescriptions:
New
amoxicillin-pot clavulanate 875-125 mg tablet
1 tab PO BID Qty: 8 0RF
ciprofloxacin HCl 500 mg tablet
250 mg PO BID Qty: 8 0RF
acetaminophen [Tylenol Extra Strength] 500 mg tablet
500 mg PO Q6H PRN (Reason: fever or pain) Qty: 10 0RF
Discontinued
No Meds
metronidazole 500 MG tablet
500 mg PO TID
ciprofloxacin HCl 500 MG tablet
500 mg PO BID
Discharge Orders:
Discharge Patient (As Directed); Ordered 11/30/23
Ordered By: John Grimm
Discharge Date and Time
Print Language: PORTUGUESE
[2023-11-30 14:16] VITALS: BP 122/77
--- NOTE | 2023-11-30 16:13 | CM ---
Spoke with patient to determine if he is agreeable to VN services. He is agreeable to discharge but not VN. Patient will go home no needs.
Plan: Case management will continue to follow and assist with discharge planning. Patient is medically cleared to go.
--- NOTE | 2023-11-30 16:26 | PTCARENOTE ---
pt and provided Drain care paperwork and prescription from [facility]. reviewed routine drain care, flushing, emptying and drainage recording. pt and verbalized understanding of above.
== END 2023-11-30 16:47 | disposition home health service (06) | DRG 871 ==
LOC: 2 SOUTH 01:41
PROVIDERS: Clinical Nurse Specialist Family Health; Nurse Practitioner Gerontology; Physician Assistant; Radiology Vascular & Interventional Radiology; Student in an Organized Health Care Education/Training Program; ADMITTING PHYSICIAN Internal Medicine; ATTENDING PHYSICIAN Internal Medicine; CONSULT PHYSICIAN Surgery; EMERGENCY PHYSICIAN Emergency Medicine; FAMILY PHYSICIAN Family Medicine
PROC: 0W9J3ZZ Drainage of Pelvic Cavity, Percutaneous Approach (ICD-10-PCS; 2023-11-27)
DX: A41.9 Sepsis, unspecified organism (principal); K65.1 Peritoneal abscess; K57.20 Diverticulitis of large intestine with perforation and abscess without bleeding; F17.200 Nicotine dependence, unspecified, uncomplicated; F10.10 Alcohol abuse, uncomplicated; R33.8 Other retention of urine
CPT/HCPCS: 49406; 74177; 80048; 80053; 81003; 83605; 83690; 85025; 85027; 85610; 87040; 87070; 87205; 96361; 96365; 96375; 99152; 99285; 99406; Q9967

== ENCOUNTER → 2023-12-14 10:23 | Outpatient (REF) | payer OTHER, SELFPAY ==
[2023-12-14 10:40] VITALS: BP 108/84; BP_SYST 68
[2023-12-14 11:00] VITALS: BP 120/88
== END ==
LOC: RADI 10:23
PROVIDERS: ATTENDING PHYSICIAN Surgery
DX: K57.20 Diverticulitis of large intestine with perforation and abscess without bleeding (principal)
CPT/HCPCS: 49424; 76080

== ENCOUNTER 2024-02-02 06:03 | Inpatient (IN) | payer OTHER, SELFPAY ==
[2024-01-23 07:04] VITALS: BMI 20.2
[2024-01-23 09:04] LABS: INR 0.96; PT 12.6 Sec (11.4-14.6)
[2024-01-23 09:05] LABS: APTT 26.8 Sec (23.4-35.0)
[2024-01-23 09:42] LABS: Glycohemoglobin (HgbA1c) 5.5 % (4.0-5.6)
[2024-01-23 09:54] LABS: ALT (SGPT) 32 U/L (0-50); AST (SGOT) 32 U/L (17-59); Albumin 4.3 g/dl (3.5-5.0); Alkaline Phosphatase 69 U/L (38-126); Blood Urea Nitrogen 16 mg/dl (9-20); Calcium 9.6 mg/dl (8.4-10.2); Carbon Dioxide 29 mmol/L (22-30); Chloride 107 mmol/L (98-107); Estimated Creatinine Clearance > 125 ml/min; Glucose 103 mg/dl (70-99); Potassium 4.7 mmol/L (3.5-5.1); Sodium 143 mmol/L (135-145); Total Bilirubin 0.7 mg/dl (0.2-1.3); Total Protein 7.3 g/dl (6.3-8.2); eGFR > 60.00
[2024-01-23 14:00] LABS: Hematocrit 46.8 % (39.0-52.0); Hemoglobin 15.3 g/dL (13.0-18.0); Mean Corp Hgb Conc. 32.7 g/dL (33.0-37.0); Mean Corpuscular Hgb 30.1 pg (27.0-31.0); Mean Corpuscular Volume 92.1 fL (80.0-94.0); Mean Platelet Volume 10.7 fL (7.4-10.4); Platelet Count 316 10^3/uL (130-400); Red Blood Cell Count 5.08 10^6/uL (4.70-6.10); Red Cell Dist. Width 14.2 % (11.5-14.5); White Blood Cell Count 9.4 10^3/uL (4.8-10.8)
[2024-02-02] VITALS (13 sets, daily range): BP systolic 98–145; BP diastolic 53–84; BMI 20.2
[2024-02-02] MEDS: NORMOSOL-R 1000 IV ×3 (06:45→21:25)
[2024-02-02] MEDS: TYLENOL 1000 MG PO (06:45)
[2024-02-02] MEDS: HEPARIN 5000 UNITS SC (07:36)
--- NOTE | 2024-02-02 12:03 | W.IMMPOSTOP ---
Surgical Immed Post Op Note
-
Primary Surgeon: Jarrett Hope MD
Fountain Supervisor: MYLES Arias
Pre-op Diagnosis: Recurrent sigmoid diverticulitis with fistula (transgluteal drain intact)
Post-op Diagnosis: Same
Procedure Performed: Robotic sigmoid colectomy with intracorporeal anastomosis
Anesthesia Type: GET
Specimen / Cultures: Sigmoid colon (suture is proximal)
Estimated Blood Loss: 20cc
Complications: None
Operative Findings: Markedly inflamed distal sigmoid colon densely adherent in the pelvis/bladder
Percutaneous drain removed
28mm EEA
Normal leak test
Patient's updated.
[2024-02-02] MEDS: TORADOL 15 MG IV ×2 (13:34→18:02)
--- NOTE | 2024-02-02 14:00 | PTCARENOTE ---
Patient received from PACU in bed; IVF infusing; Surgical site assessed, 4 lap sites and 1 incision; Patient does complain of nausea at this time, states pain is a 5 out 10; Call rousseau within reach; Bed in lowest position, wheels locked; Assessment
ongoing
[2024-02-02] MEDS: ZOFRAN 4 MG IV ×2 (14:06→21:02)
[2024-02-02] MEDS: DILAUDID 0.25 MG IV (14:06)
[2024-02-02] MEDS: TYLENOL 650 MG PO ×2 (15:49→19:43)
[2024-02-03] MEDS: TORADOL 15 MG IV ×4 (00:11→19:53)
[2024-02-03] MEDS: TYLENOL 650 MG PO ×6 (00:11→19:53)
[2024-02-03 02:53] VITALS: BP 103/53
[2024-02-03 06:00] VITALS: BMI 19.5
[2024-02-03 07:42] VITALS: BP 160/61
[2024-02-03 07:46] LABS: % Basophils 0.2 % (0-2); % Eosinophils 0.1 % (0-6); % Immature Granulocytes 0.5 % (0-0.5); % Lymphocytes 14.3 % (20.5-51.1); % Monocytes 9.8 % (1.7-9.3); % Neutrophils 75.1 % (42.2-75.2); Absolute Immature Granulocytes 0.1 10^3/uL (0-0.05); Absolute Lymphocytes 1.8 10^3/uL (1.2-3.4); Absolute Monocytes 1.2 10^3/uL (0.1-0.6); Absolute Neutrophils 9.2 10^3/uL (1.4-6.5); Hematocrit 37.3 % (39.0-52.0); Hemoglobin 13.2 g/dL (13.0-18.0); Mean Corp Hgb Conc. 35.4 g/dL (33.0-37.0); Mean Corpuscular Hgb 30.8 pg (27.0-31.0); Mean Corpuscular Volume 86.9 fL (80.0-94.0); Mean Platelet Volume 10.2 fL (7.4-10.4); Nucleated Red Blood Cells % 0 % (-); Platelet Count 283 10^3/uL (130-400); Red Blood Cell Count 4.29 10^6/uL (4.70-6.10); Red Cell Dist. Width 13.9 % (11.5-14.5); White Blood Cell Count 12.3 10^3/uL (4.8-10.8)
[2024-02-03] MEDS: NORMOSOL-R 1000 IV (07:48)
[2024-02-03] MEDS: ENTEREG 12 MG PO ×2 (07:49→19:53)
[2024-02-03 08:06] LABS: Blood Urea Nitrogen 18 mg/dl (9-20); Carbon Dioxide 25 mmol/L (22-30); Chloride 102 mmol/L (98-107); Estimated Creatinine Clearance > 125 ml/min; Glucose 89 mg/dl (70-99); Potassium 4.2 mmol/L (3.5-5.1); Sodium 134 mmol/L (135-145); eGFR > 60.00
[2024-02-03 10:27] VITALS: BP 103/57
[2024-02-03 14:31] VITALS: BP 109/57
--- NOTE | 2024-02-03 15:18 | W.PN.CRS1 ---
Addendum entered and electronically signed by Daren You MD 02/03/24 15:28:
I saw and examined the patient.
The SUPPLIER QUALITY SPECIALIST's note was reviewed and I agree with the note.
Comment:
POD 1 robotic sigmoidectomy for diverticulitis
Doing well this a.m. No N/V. Pain controlled. Passing flatus, no BMs. + [place]. + OOB
AFVSS, ABD soft, minimally distended, appropriately tender, no R/G; incisions well-approximated without erythema or drainage
WBC 12.3, Hb 13.2 from 15.3, Cr 0.7, UOP 820
� Advance to fulls
� Start DVT PPx with Lovenox; mild drop in hemoglobin likely delusional; will trend tomorrow
� Continue pain control with Tylenol, Toradol, Dilaudid as needed; continue Entereg
� DC Ames, DC IV fluids
� OOB/encourage IS, ambulate twice daily
Original Note:
Today's Communication / Plan
-
Advance diet
OOB/Ambulate
Assessment/Plan
-
Mr Kearns is a 48 yo male with a h/o recurrent sigmoid diverticulitis with fistula (right trans gluteal drain) who presented for operative management and is now POD #1 robotic sigmoid colectomy (drain removed)
AFVSS
Labs stable post op
Passing some flatus and tolerating sips of clears
--Full liquid diet
--Continue scheduled and prn analgesics
--OOB/Ambulate
--D/C IVF once tolerating PO
--D/C ames for voiding trial
--Lovenox 40mg SQ with SCD's for VTE ppx
Subjective Data
Procedure
02/02/24 Robotic sigmoid colectomy with intracorporeal anastomosis.
Subjective Data
Date of Service: February 03, 2024
Patient seen and examined at bedside with Dr. You. Denies n/v. Passing a little flatus. Pain well managed.
Objective Data
-
Vital Signs
Temp Pulse Resp BP Pulse Ox
98.3 F 58 16 109/57 92
02/03/24 14:31 02/03/24 14:31 02/03/24 14:31 02/03/24 14:31 02/03/24 14:31
Intake & Output
02/02/24 02/03/24 02/04/24
06:59 06:59 06:59
Intake Total 1750 / 1750
Output Total 820 / 820
Balance 930 / 930
Intake:
IV fluids (Total) 1750 / 1750
normosol 150 / 150
Output:
Urine, [place] 820 / 820
Lab Results
02/03/24 06:37
02/03/24 06:37
Physical Exam
-
General: No Acute Distress
HEENT: Grossly Normal
Abdomen: Soft, Distended (minimal) and Tender (expected incisional)
Skin: Warm and Dry
Incision: Clear, Dry, Intact (glue intact)
[2024-02-03] MEDS: LOVENOX 40 MG SC (17:05)
[2024-02-03] MEDS: NORMOSOL-R IV (17:09)
[2024-02-03 23:00] VITALS: BP 114/57
[2024-02-04] MEDS: TYLENOL 650 MG PO ×3 (00:36→12:10)
[2024-02-04] MEDS: TORADOL 15 MG IV ×2 (00:37→12:11)
[2024-02-04] MEDS: TYLENOL PO (04:20)
[2024-02-04 06:00] VITALS: BMI 19.7
[2024-02-04 07:15] VITALS: BP 113/70
--- NOTE | 2024-02-04 07:31 | CM ---
Addendum entered by Marisa Doll 02/04/24 14:47:
patient ambulating,paswsing gas,tolerating a low residue diet.stable for dc home with no needs.
Addendum entered by Marisa Doll 02/04/24 07:55:
met with patient at bedside.patient lives with his and 2 children in house with no jered,half bath on first level,his bed and bath is on the second floor,he amb i and is i with his adl's.his pcp is quentin melchor and he uses [facility] in
[place].he has had a vn from [facility] but has no ip rehab episodes. patient is sp sigmoid resection for diverticulitis pod#2,he is on full liquids,dc oley,dc ivf.patient will have no needs when dc home.plan home with Assistance.
Original Note:
met with patient at bedside.patient lives with his and 2 children in house with no jered,half bath on first level,his bed and bath is on the second floor,he amb i and is i with his adl's.his pcp is quentin melchor and he uses [facility] in
[place].he has had a vn from [facility] but has no ip rehab episodes.
patient is sp sigmoid resection for diverticulitis pod#2,he is on full liquids,dc oley,dc ivf.patient will have no needs when dc home.plan home with Assistance.
[2024-02-04 07:51] LABS: Hematocrit 36.5 % (39.0-52.0); Hemoglobin 12.6 g/dL (13.0-18.0); Mean Corp Hgb Conc. 34.5 g/dL (33.0-37.0); Mean Corpuscular Hgb 30.1 pg (27.0-31.0); Mean Corpuscular Volume 87.3 fL (80.0-94.0); Platelet Count 300 10^3/uL (130-400); Red Blood Cell Count 4.18 10^6/uL (4.70-6.10); White Blood Cell Count 8.5 10^3/uL (4.8-10.8)
[2024-02-04 08:03] LABS: Blood Urea Nitrogen 14 mg/dl (9-20); Carbon Dioxide 30 mmol/L (22-30); Chloride 103 mmol/L (98-107); Estimated Creatinine Clearance 121 ml/min; Glucose 90 mg/dl (70-99); Potassium 4.4 mmol/L (3.5-5.1); Sodium 138 mmol/L (135-145); eGFR > 60.00
[2024-02-04] MEDS: ENTEREG 12 MG PO (08:34)
[2024-02-04] MEDS: TORADOL IV (08:34)
--- NOTE | 2024-02-04 12:21 | W.PN.CRS1 ---
Today's Communication / Plan
-
Advance to low residue
Possible DC today versus tomorrow
Assessment/Plan
-
POD 2 robotic sigmoidectomy for diverticulitis
WBC 8.4, Hb 12.6 from 13.2
� Advance to low residue
� Cont DVT PPx with Lovenox; mild drop in hemoglobin likely dilutional; more stable today
� Continue pain control with Tylenol, Toradol, Dilaudid as needed; continue Entereg
� OOB/encourage IS, ambulate twice daily
Dispo�if tolerating low residue, okay for DC this afternoon versus tomorrow
Subjective Data
Procedure
02/02/24 Robotic sigmoid colectomy with intracorporeal anastomosis.
Subjective Data
Date of Service: February 04, 2024
No overnight events.
Pain controlled.
Denies nausea/vomiting. Tolerating diet.
+flatus +BMs (nonbloody) +voiding
Pt is OOB.
Objective Data
-
Vital Signs
Temp Pulse Resp BP Pulse Ox
97.4 F 52 17 113/70 97
02/04/24 07:15 02/04/24 07:15 02/04/24 07:15 02/04/24 07:15 02/04/24 07:15
Intake & Output
02/03/24 02/04/24 02/05/24
06:59 06:59 06:59
Intake Total 1750 / 1750 2420 / 2420
Output Total 820 / 820 1530 / 1530
Balance 930 / 930 890 / 890
Intake:
Oral fluids 1320 / 1320
IV fluids (Total) 1750 / 1750 1100 / 1100
normosol 150 / 150
Output:
Urine, [place] 820 / 820 350 / 350
Urine, Voided 1180 / 1180
Other:
Number of approximated MODERATE 3
amounts of urine
Lab Results
02/04/24 06:27
02/04/24 06:27
Physical Exam
-
General: No Acute Distress and AOx3
HEENT: Grossly Normal
Abdomen: Soft, Non Distended, Tender (Appropriately tender near incisions), No Guarding and No Rebound
Neurological: Other (Moving all extremities, no gross deficits)
Skin: Warm and Dry
Wound: Dressing in Place (Dermabond) and No Skin Erythema
[2024-02-04 12:47] VITALS: BP 118/66
--- NOTE | 2024-02-04 14:55 | W.DCSUMMARY ---
Discharge Summary
Discharge Data
Date of Admission: 02/02/24
Date of Discharge: 02/04/24
-
Pending Results: No
Hospital Course
Mr Kearns is a 48 yo male who presented for surgical management of diverticulitis with robotic sigmoidectomy. He tolerated the procedure well without complication. Diet was able to be advanced and well tolerated. Post operative pain was minimal. He
was discharged to home with family with outpatient follow up planned as an outpatient.
Discharge Plan
-
Patient Disposition: Home (Routine Discharge)
Discharge Diagnosis/Procedures: robotic sigmoidectomy for diverticulitis
Condition: Good
Diet: Low Fiber
Activity: No strenuous activity
Additional Activity: do not lift over 10lbs until cleared by your surgeon
Driving Restrictions: Wait until comfortable twisting/off narcotics
Bathing Restrictions: OK to Shower
Wound Care: Ok to shower and gently wash incisions with soap and water. Avoid scrubbing or picking off glue.
Activity Restrictions/Additional Instructions:
Call your surgeon if you have fevers >100.5, nausea with vomiting or worsening abdominal pain
Referrals:
Avelino Zamorano MD [Family Provider] -
Sudeep Hope MD [Active] - in two to three weeks
Prescriptions:
New
ibuprofen 200 mg tablet
400 - 600 mg PO Q6HPRN PRN (Reason: moderate pain) Qty: 1 0RF
oxycodone 5 mg tablet
5 mg PO Q4HPRN PRN (Reason: breakthrough/severe pain) Qty: 5 0RF
Continued
acetaminophen [Tylenol Extra Strength] 500 mg tablet
500 mg PO Q6H PRN (Reason: fever or pain) Qty: 10 0RF
Discontinued
ciprofloxacin HCl 500 mg tablet
250 mg PO BID Qty: 8 0RF
metronidazole 500 mg Tablet
500 mg PO .[id number]
Patient Comments:
took at 1400,1500, and 2200 on 02/01/24
Rx Instructions:
take as directed on 02/01/24
neomycin 500 mg Tablet
1,000 mg PO .[id number]
Patient Comments:
took at 1400,1500,and 2200 on 02/01/24
Rx Instructions:
Take as directed on 02/01/24
Sutab 1.479-0.188- 0.225 gram Tablet
24 tab PO PER PKG DIR
Rx Instructions:
Bowel prep for surgery
Discharge Orders:
Discharge Patient (As Directed); Ordered 02/04/24
Ordered By: Homa Robins
Discharge Date and Time
Print Language: [place]
== END 2024-02-04 15:12 | disposition home or self-care (01) | DRG 331 ==
LOC: 2 SOUTH 06:03
PROVIDERS: Registered Nurse; ADMITTING PHYSICIAN Surgery; FAMILY PHYSICIAN Family Medicine
PROC: 0DTN4ZZ Resection of Sigmoid Colon, Percutaneous Endoscopic Approach (ICD-10-PCS; 2024-02-02)
DX: K57.32 Diverticulitis of large intestine without perforation or abscess without bleeding (principal)
CPT/HCPCS: 88307; 36415; 80048; 80053; 83036; 85025; 85027; 85610; 85730; 86850; 86900; 86901; 93005; J1335

== ENCOUNTER → 2024-09-10 15:12 | Outpatient (REF) | payer OTHER, SELFPAY | LOC: RAD 15:12 | PROVIDERS: ATTENDING PHYSICIAN Surgery; FAMILY PHYSICIAN Family Medicine | DX: R10.32 Left lower quadrant pain (principal) | CPT/HCPCS: 74177; Q9967 ==

== ENCOUNTER 2025-05-12 15:47 | Emergency (ER) | payer OTHER, SELFPAY ==
[2025-05-12 15:50] VITALS: BP 138/91
[2025-05-12] MEDS: PEPCID 40 MG PO (16:22)
[2025-05-12] MEDS: DELTASONE 50 MG PO (16:22)
--- NOTE | 2025-05-12 16:40 | ED.GENMED ---
History of Present Illness
General
Chief Complaint: Insect Sting
Source: patient
Time Seen by Provider: 05/12/25 16:12
History of Present Illness
History of Present Illness:
49-year-old male who was drinking a drink and accidentally was stung by a yellowjacket. He promptly spit the insect out, and actually saved it and observed that the stinger is intact. He noted swelling to the right side of the upper lip which is
stable since the event. He denies history of allergic reaction. He denies throat tightness, trouble swallowing, change in voice, drooling, chest pain, shortness of breath, abdominal pain, nausea, vomiting, or other complaints.
Past History
Past History
ED Past Medical History: Other (Diverticulitis, )
ED Past Surgical History: Orthopedic (Right knee surgery)
Social History
Tobacco: Smoker
Alcohol: Occasional (Beer 4-5)
Drug: None
Personal:
Living: with family
Phy Exam
Physical Exam
Physical Exam:
GENERAL: Alert , in no apparent distress
EYE: pupils equal and reactive
NECK: Supple, no significant adenopathy.
ENT: o/p clr, mmm, uvula midline, voice clear, no trismus, no drool. There is mild swelling noted at the right side of the upper lip, no abrasion laceration or foreign body noted.
CARDIAC: Regular rate and rhythm .
LUNGS: Clear breath sounds bilaterally, no acute respiratory distress, no wheezes/rales/rhonchi
ABDOMEN: Soft, without focal tenderness, no r/g, no cvat
NEUROLOGICAL: Alert and oriented, no focal neuro deficits
SKIN: Warm and dry, skin intact.
MUSCULOSKELETAL: No edema, well perfused.
PSYCH: Normal and appropriate interaction.
Course
Orders/Labs/Results
Orders:
Orders
05/12/25 16:18
Famotidine [Pepcid] 40 mg PO NOW STA
Prednisone [Deltasone] 50 mg PO NOW STA
Vital Signs
Initial and Last Documented VS:
Initial Vital Signs
Temp Pulse Resp BP Pulse Ox
97.6 F 78 16 138/91 95
05/12/25 15:50 05/12/25 15:50 05/12/25 15:50 05/12/25 15:50 05/12/25 15:50
Last Documented Vital Signs
Temp Pulse Resp BP Pulse Ox
97.6 F 78 16 138/91 95
05/12/25 15:50 05/12/25 15:50 05/12/25 15:50 05/12/25 15:50 05/12/25 15:50
*Pulse Oximetry
SaO2: 95
Oxygen Mode of Delivery: Room air
Update Note
Update Note:
Patient presents to the Emergency Department with ____lip swelling after bee sting
Number and Complexity of Problems Addressed at the Encounter
� Chronic conditions affecting care:
� Acute Exacerbation and/or Progression of Chronic Illness:
� Differential Diagnosis includes: But not limited to retained stinger, laceration, abrasion, allergic reaction, etc. etc.
Amount and/or Complexity of Data to be Reviewed and Analyzed
� I performed an independent evaluation of and my interpretation is:
EKG:
CT:
Xrays:
Laboratory Studies:
Other:
� Review of other/old records reveals:
� Clinical information was obtained by an independent historian:
� Prescriptions/Medications Considered but not given:
� Further testing considered but not performed:
Risk of Complications and/or Morbidity or Mortality of Patient Management
� Social determinants of health affecting care:
� Discussion with other providers (PCP, Hospitalists, Consultants, etc):
� Escalation of care including admission/observation vs risk of discharge considered: Patient overall extremely well-appearing with the exception of isolated lip swelling which has not progressed. He took Benadryl before
arrival. He is given Pepcid and steroids here. He has not progressed in his symptoms. No findings to suggest respiratory compromise or impending airway compromise. Patient will be prescribed/instructed to take Claritin, prednisone, and an EpiPen
to be used in the future if indicated. Discussed with patient portance of follow-up and reasons return to ER.
ED Attending Note
-
Portions of this chart may have been created with voice recognition software.� Occasional wrong word or��sound alike� substitutions may have occurred due to the inherent limitations of voice recognition software.
Discharge Plan
Departure
Patient Disposition: Home (Routine Discharge)
Date of Disposition: 05/12/25
Time of Disposition: 16:43
Patient with high blood pressure during this ER visit?: Yes
Condition: Good
Discharge Problem:
Accidental bee sting
Instructions: Insect Bites and Stings (DC), BLOOD PRESSURE
Prescriptions:
New
epinephrine [EpiPen 2-Jamey] 0.3 mg/0.3 mL auto-injector
0.3 ml IM ONCE Qty: 2 0RF
prednisone 50 mg tablet
50 mg PO DAILY Qty: 4 0RF
No Action
acetaminophen [Tylenol Extra Strength] 500 mg tablet
500 mg PO Q6H PRN (Reason: fever or pain) Qty: 10 0RF
ibuprofen 200 mg tablet
400 - 600 mg PO Q6HPRN PRN (Reason: moderate pain) Qty: 1 0RF
oxycodone 5 mg tablet
5 mg PO Q4HPRN PRN (Reason: breakthrough/severe pain) Qty: 5 0RF
Referrals:
Louis Sky MD [[facility], Sheet Writer] - Next open appointment
Activity Restrictions/Additional Instructions:
PLEASE APPLY ICE TO THE AREA TO HELP REDUCE SWELLING. PLEASE TAKE CLARITIN ONCE A DAY FOR THE NEXT, AND ADD BENADRYL NEEDED FOR SWELLING. IF YOU DEVELOP INCREASING OR NEW SWELLING, TROUBLE SWALLOWING, CHEST PAIN, SHORTNESS OF BREATH, DROOLING,
VOMITING, GET WORSE, DO NOT GET BETTER, OR OTHER WORRISOME SIGNS, PLEASE RETURN TO THE ER IMMEDIATELY!
Interventions
Interventions:
*Risk Screen - Suicide Last Done: 05/12/25 15:50
*General Assessment Last Done: 05/12/25 15:50
ED- Pulmonary Assessment Last Done: 05/12/25 16:24
ED-Skin Assessment Last Done: 05/12/25 16:24
Discharge Date and Time
Print Language: CROATIAN
== END 2025-05-12 16:53 | disposition home or self-care (01) ==
LOC: EMR 15:47
PROVIDERS: EMERGENCY PHYSICIAN Emergency Medicine; FAMILY PHYSICIAN Family Medicine
DX: T63.461A Toxic effect of venom of wasps, accidental (unintentional), initial encounter (principal); R03.0 Elevated blood-pressure reading, without diagnosis of hypertension; F17.200 Nicotine dependence, unspecified, uncomplicated
CPT/HCPCS: 99283